=== PATIENT | female | born 1975 | race Caucasian/White ===

== ENCOUNTER 2024-06-12 18:17 | Emergency (ER) | payer OTHER, SELFPAY ==
--- NOTE | 2024-06-12 20:01 | ED.GENMED ---
History of Present Illness
General
Chief Complaint: Ear Problem
Source: patient
Exam Limitations: none
Time Seen by Provider: 06/12/24 19:52
Nursing documentation reviewed up to this point in time: agreed with
History of Present Illness
History of Present Illness:
48-year-old female with history as noted presents to the ER for evaluation of muffled hearing. Patient reports that she woke up this morning and noticed that her hearing was muffled in the right ear and slightly on the left. She says she had some
mild achiness in the right ear. No drainage. No trauma to the ear. She denies any other symptoms�has not had any fever, cough, congestion recently. Came to the ER for assessment.
Review of Systems
Review of Systems
All Other Systems: ROS reviewed and negative except as documented in HPI and ROS
Constitutional: Denies fever or chills
EENT: Reports other (Muffled hearing); Denies sore throat or runny nose
Respiratory: Denies cough
Phy Exam
Physical Exam
Physical Exam:
General: Well appearing and non-toxic
Ears: External ears appear normal bilaterally; examination of the left ear canal there is no obstruction, TM visible with good light reflex small amount of fluid noted behind the ear but no erythema; on exam of the right ear canal there is no
obstruction, TM visible, slightly bulging with significant fluid, no erythema
Nose: No swelling of the nasal turbinates noted
Throat: No tonsillar enlargement, erythema, or exudate, moist mucous membranes
Neck: appears supple
CV: No evidence of cyanosis
Resp: No accessory muscle use
Abd: Non-distended
Extremities: No deformities
Neuro: Alert
Psych: Normal affect
Skin: Intact
Scores
Heart Failure Risk
Heart Failure Risk Score: Not Applicable
Heart Score for Chest Pain Patients
STEMI patient?: Not applicable
Withdrawal Assessment of Alcohol
Withdrawal Assessment Completed?: Not applicable
MDM/Problems Addressed
Differential Diagnosis Includes:
Cerumen impaction, eustachian tube dysfunction, otitis media
MDM/Problems Addressed:
48-year-old female presents with muffled hearing of the right ear and slightly on the left. Exam as above. She has middle ear effusion right much greater than left with bulging of the right TM but no erythema. Could be eustachian tube dysfunction
versus otitis media. Treat with decongestants, antibiotics. Follow-up with ENT as an outpatient. Patient very comfortable this plan. All questions answered.
*Pulse Oximetry
Patient hypoxic: no
*Critical Care Note
Total Time (30-74mins, 75-104mins- exclusive of procedures): Not Applicable
Data Reviewed
Source: patient and spouse
ED Attending Note
-
Portions of this chart may have been created with voice recognition software.� Occasional wrong word or��sound alike� substitutions may have occurred due to the inherent limitations of voice recognition software.
Discharge Plan
Departure
Discharge Problem:
Acute middle ear effusion
Instructions: Ear infection - ED discharge instructions
Prescriptions:
New
cefdinir 300 mg capsule
300 mg PO BID Qty: 14 0RF
Referrals:
Sterling Jaimes MD [Active] - Call in 1-3 days for appt (ENT)
Felipe Chen MD [Family Provider] -
Activity Restrictions/Additional Instructions:
Thank you for visiting the Emergency Department at [facility].
1. Please schedule a follow up appointment as directed. Call first thing tomorrow morning to make an appointment.
2. If indicated, please take your medications as instructed and indicated on discharge paperwork.
3. If any of your symptoms do not improve, or persist, or become more severe within 6-12 hours, please return to the emergency department for further care.
4. Please return to the emergency department if you develop a headache, neck pain/stiffness, fever greater than 100.4F, chest pain, shortness of breath, persistent nausea, vomiting, slurred speech, difficulty walking, numbness/tingling, weakness,
signs of infection or any other symptoms that are worrisome to you.
Please call [phone] if you have any questions.
Interventions
Interventions:
*Risk Screen - Suicide Last Done: 06/12/24 18:23
*General Assessment Last Done: 06/12/24 18:23
*Neglect/Abuse Screening Last Done: 06/12/24 18:23
ED- Fall Risk Assessment Last Done: 06/12/24 19:09
*ED COVID-19 Vaccine History Last Done: 06/12/24 18:23
Discharge Date and Time
Print Language: SAUDI ARABIAN
[2024-06-12 20:02] VITALS: BP 128/86
== END 2024-06-12 20:07 | disposition home or self-care (01) ==
LOC: EMR 18:17
PROVIDERS: EMERGENCY PHYSICIAN Emergency Medicine; FAMILY PHYSICIAN Internal Medicine
DX: H66.92 Otitis media, unspecified, left ear (principal)
CPT/HCPCS: 99282